=== PATIENT | male | born 1980 | race Caucasian/White ===

== ENCOUNTER 2017-07-02 10:00 | Emergency (ER) | payer OTHER ==
--- NOTE | 2017-07-02 10:04 | ED Physician Documentation ---
General Adult - HISTORIAN Historian: patient, spouse - HPI Stated Complaint: chest tightness and dizziness about 7 Chief Complaint: Chest Pain Onset: hours (2) Timing: still present, better Modifying Factors: none - he tried to rest with no improvment Context: Pressure Quality: chest Further Comments: yes (he reports being dizzy and diaphortic) Last known Well Date: 07/02/17 Last Known Well Time: 08:00 Last known Well Code/Unknown Code: Unknown - ROS CONST: sweating, weakness. denies: fever, recent illness EYES/ENT: denies: problems with vision, sore throat CVS/RESP: chest pain. denies: shortness of breath, cough GI/: denies: abdominal pain, problems urinating, vomiting, nausea, diarrhea MS/SKIN/LYMPH: none NEURO/PSYCH: dizziness. denies: anxiety, depression - PAST HX Past History: none Other History: none Surgeries/Procedures: none Immunizations: referred to PCP Allergies/Adverse Reactions: Allergies Allergy/AdvReac Type Severity Reaction Status Date / Time codeine [Codeine] Allergy Intermediate Generalized Verified 07/02/17 10:17 Swelling shellfish derived Allergy Verified 07/02/17 10:17 Home Medications: Ambulatory Orders Medication Instructions Recorded NK [NK] 08/08/16 - SOCIAL HX Smoking History: non-smoker Alcohol Use: none Drug Use: none - FAMILY HX Family History: No - VITAL SIGNS Vital Signs: Vital Signs Temp Pulse Resp BP Pulse Ox 105/68 08/08/16 21:03 - REVIEWED ASSESSMENTS Nursing Assessment Reviewed: Yes Vitals Reviewed: Yes Progress - Progress Progress: states he is feeling better He has no chest pain Does feel weak No other complaints He will follow with PCP Tuesday ED Results Lab/Radiology - Radiology Radiology Impressions: Examination: Portable chest History: Chest discomfort Comparison exam: None available. Findings: Single view of the chest demonstrates a normal cardiac and mediastinal silhouette. Lung naranjo without focal infiltrate. No effusion. Osseous structures are appropriate for age. Impression: No acute pulmonary process. Electronically signed on Jul 02, 2017 10:44:34 AM FENCE GATE ASSEMBLER by: Abisai Diane General Adult Physical Exam - PHYSICAL EXAM GENERAL APPEARANCE: no distress EENT: eye inspection normal NECK: normal inspection RESPIRATORY: no resp distress, chest non-tender, breath sounds normal CVS: reg rate & rhythm, heart sounds normal, equal pulses, no murmur ABDOMEN: soft, no organomegaly, normal bowel sounds, no abdominal bruit, no distension SKIN: warm/dry EXTREMITIES: non-tender NEURO: oriented X3, CN's nml as tested, motor nml Discharge Clincal Impression: Chest pain Qualifiers: Chest pain type: unspecified Qualified Code(s): R07.9 - Chest pain, unspecified Referrals: Primary Doctor,No [Primary Care Provider] - 2 Days Condition: Stable Disposition: 01 HOME, SELF-CARE Decision to Admit: NO Date of Decison to Admit: 07/02/17 Decision Time: 10:59
[2017-07-02] MEDS: ASPIRIN 81 MG CHEW TAB PO ONE (10:13)
[2017-07-02 10:18] LABS: BASOPHILS % 0.5 (0.0-1.5); EOSINOPHILS % 2.5 % (0.0-6.8); MEAN CORPUSCULAR HEMOGLOBIN 29.9 pg (28.0-34.0); MEAN CORPUSCULAR VOLUME 89.4 fl (80.0-100.0); MONOCYTES % 7.8 % (0.0-11.0); NEUTROPHILS # 3.1 # k/uL (1.4-7.7)
[2017-07-02 10:45] LABS: eGFR (African) > 60; eGFR (Non-African) > 60
[2017-07-02 11:14] VITALS: BP 114/73
--- NOTE | 2017-07-02 11:32 | Diagnostic Imaging Report ---
[facility] [id number] [facility] [address], [place]. [address] Report Submission Date: Jul 02, 2017 10:44:34 AM SLAB INSTALLER Patient Study Name: KEEGAN NEWSOME Date: Jul 02, 2017 10:32:26 AM SLAB INSTALLER Modality Type: CR Gender: M Description: CHEST : 78 Institution: [facility] Physician: JARRELL WEBER - ER Examination: Portable chest History: Chest discomfort Comparison exam: None available. Findings: Single view of the chest demonstrates a normal cardiac and mediastinal silhouette. Lung naranjo without focal infiltrate. No effusion. Osseous structures are appropriate for age. Impression: No acute pulmonary process. Electronically signed on Jul 02, 2017 10:44:34 AM SLAB INSTALLER by: Abisai LARSON
== END 2017-07-02 11:12 | disposition home or self-care (01) ==
LOC: ED 10:00 → SUPCPDRO 10:00 → ED 11:12
DX: R07.9 Chest pain, unspecified (principal)
CPT/HCPCS: 71010; 80053; 82550; 82553; 84484; 85025; 99283; S1016

== ENCOUNTER 2017-07-04 11:52 | Outpatient (CLI) | payer OTHER | END 2017-07-04 12:00 | LOC: LAB 11:52 | PROVIDERS: ATTEND Family Medicine | DX: R00.2 Palpitations (principal) | CPT/HCPCS: 36415; 84443 ==

== ENCOUNTER 2017-07-12 11:01 | Outpatient (CLI) | payer OTHER | END 2017-07-12 11:02 | LOC: CARD 11:01 | PROVIDERS: ATTEND Internal Medicine Cardiovascular Disease | DX: R07.9 Chest pain, unspecified (principal); R00.2 Palpitations; Z72.0 Tobacco use | CPT/HCPCS: 99213 ==